=== PATIENT | male | born 1980 | race Two or more races ===

== ENCOUNTER 2024-09-11 09:58 | Outpatient (CLI) | payer OTHER | END 2024-09-11 10:04 | disposition home or self-care (01) | LOC: SONOGRAMA 09:58 | PROVIDERS: ATTEND Pathology Anatomic Pathology & Clinical Pathology | DX: D34 Benign neoplasm of thyroid gland (principal); E07.89 Other specified disorders of thyroid; E04.2 Nontoxic multinodular goiter; R22.1 Localized swelling, mass and lump, neck ==